=== PATIENT | female | born 1945 | race Caucasian/White ===

== ENCOUNTER 2019-01-09 08:06 | Day surgery (SDC) | payer MEDICARE, OTHER ==
[2019-01-09] MEDS ORDERED: fentaNYL 100 MCG/2 ML SDV IV ONE (08:07)
[2019-01-09] MEDS ORDERED: Propofol 200 MG/20 ML SDV IV ONE (08:07)
[2019-01-09] MEDS ORDERED: Rocuronium 50 MG/5 ML Vial IV ONE (08:07)
[2019-01-09] MEDS ORDERED: Glycopyrrolate 0.2 MG/ML 5 ML MDV IV ONE (08:07)
[2019-01-09] MEDS ORDERED: Ondansetron 4 MG/2 ML SDV IVPUSH ONE ×2 (08:07→14:43)
[2019-01-09] MEDS ORDERED: Midazolam 1 MG/ML 2 ML SDV IV ONE (08:07)
[2019-01-09] MEDS ORDERED: Dexamethasone 4 MG/ML 5 ML MDV IVPUSH ONE (08:07)
[2019-01-09] MEDS ORDERED: Lactated Ringers 1,000 ML IV ONE (08:07)
[2019-01-09] MEDS ORDERED: Labetalol 100 MG/20 ML MDV IV ONE (08:07)
[2019-01-09] MEDS ORDERED: Lidocaine 1% PF 2 ML SDV INJECT ONE (08:07)
[2019-01-09] MEDS ORDERED: Neostigmine Methylsulfate 10 MG/10 ML MDV IVPUSH ONE (08:07)
[2019-01-09] MEDS ORDERED: Sodium Chloride 0.9% 10 ML Syringe FLUSH PRN (08:45)
[2019-01-09] MEDS ORDERED: Lactated Ringers 1,000 ML IV SCH (08:45)
[2019-01-09] MEDS ORDERED: Acetaminophen 500 MG Tab PO ONE (08:57)
--- NOTE | 2019-01-09 12:09 | PCM.HPR ---
H & P Addendum review - H & P Addendum Review Date of Original H & P: 01/02/19 Date Reviewed: 01/09/19 Time Reviewed: 11:00 Patient was Examined: No Changes
--- NOTE | 2019-01-09 12:53 | PCM.OPNOTE ---
- General Post-Op/Procedure Note Date of Surgery/Procedure: 01/09/19 Operative Procedure(s): Lap Vianca Pre Op Diagnosis: Chronic Cholecystitis Post-Op Diagnosis: Same Anesthesia Technique: General ET Tube Primary Surgeon: Sumanth Joel Pathology: Gallbladder EBL in mLs: 5 Complications: None Condition: Good
[2019-01-09] MEDS ORDERED: Morphine 2 MG/ML Syringe IVPUSH PRN (12:55)
[2019-01-09] MEDS ORDERED: Acetaminophen/HYDROcodone 325-5 MG Tab PO PRN (12:55)
[2019-01-09] MEDS ORDERED: traMADol 50 MG Tab PO PRN (14:21)
--- NOTE | 2019-01-09 20:40 | OR ---
DATE OF OPERATION: 01/09/2019 SURGEON: Sumanth Joel MD PREOPERATIVE DIAGNOSIS: Chronic cholecystitis. POSTOPERATIVE DIAGNOSIS: Chronic cholecystitis. PROCEDURE: Laparoscopic cholecystectomy. ANESTHESIA: General. DESCRIPTION OF PROCEDURE: The patient was brought to the operating room, where general endotracheal anesthesia was administered. The abdomen was prepped with ChloraPrep and draped sterilely. An infraumbilical incision was made and extended into the peritoneal cavity without difficulty. The Bigg cannulator was introduced and pneumoperitoneum obtained. The remaining three 5 mm ports were placed in the usual positions. General exploration revealed the omental, peritoneal, liver, stomach, and bowel surfaces to be normal. Gallbladder appears grossly normal. This was retracted cephalad. Cystic duct and cystic artery were dissected free without difficulty. Cystic artery was doubly clipped proximally and once distally and then transected. Anatomy of the cystic duct was reconfirmed and could be seen entering the gallbladder and extending towards the common bile duct. This was doubly clipped proximally and once distally and then transected. The gallbladder was then removed from the bed of the liver without difficulty. A small posterior branch of the cystic artery was clipped proximally and cauterized distally. After the gallbladder was completely freed up, it was brought out through the umbilical port site. Right upper quadrant was inspected and irrigated. There had been 1 oozing spot on the upper portion of the liver that was controlled with cautery and remained hemostatic. Irrigation return was clear. The ports were removed under direct vision and remained hemostatic. Umbilical fascia was closed with [id number] 0-Vicryl. Skin was closed with 4-0 Vicryl subcuticular sutures. Benzoin and Steri-Strips were placed and Band- Aids applied. The patient tolerated the procedure well. Estimated blood loss, 5 mL. She returned to Postanesthesia in stable condition. /[id number] SAMPSON/KAELYN
== END 2019-01-09 15:15 | disposition home or self-care (01) ==
LOC: FB.SDS 08:06
PROVIDERS: ATTEND Surgery
DX: K81.1 Chronic cholecystitis (principal); I10 Essential (primary) hypertension; Z79.82 Long term (current) use of aspirin
CPT/HCPCS: 00790; 47562; 88304; A9270; J1100; J2001; J2250; J2405; J2704; J2710; J3010; J3490; J7120